=== PATIENT | male | born 1985 | race Caucasian/White ===

== ENCOUNTER 2017-03-04 09:03 | Emergency (ER) | payer BC ==
[2017-03-04 09:14] VITALS: BP 144/85
--- NOTE | 2017-03-04 09:47 | UC ---
Respiratory Complaint HPI - HPI Summary HPI Summary: 31 year old with cough ."Just a constant cough that I've had for about a week that won't go away and causing a big headache." Sinus pressure as well . Initial subjective fever and night sweats for three days. Headache aggravated by coughing and mostly nonproductive cough for one week. Patient works construction. Was feeling better and now worsening and with cough and fatigue. PCP Romero. [ End ] - History of Current Complaint Chief Complaint: UCRespiratory Stated Complaint: COUGH Time Seen by Provider: 03/04/17 09:41 Hx Obtained From: Patient Onset/Duration: Gradual Onset Timing: Constant Severity Initially: Mild Severity Currently: Moderate Character: Cough: Nonproductive Aggravating Factors: Nothing Alleviating Factors: Nothing Associated Signs And Symptoms: Positive: URI, Nasal Congestion - Allergies/Home Medications Allergies/Adverse Reactions: Allergies Allergy/AdvReac Type Severity Reaction Status Date / Time No Known Allergies Allergy Verified 03/04/17 09:09 Home Medications: Home Medications Syflrevnzqqtv-Hsrmecwtic-Qbuzb [VICKS DAYQUIL/NYQUIL COLD (Liquid)] 30 ml PO Q6H PRN 03/04/17 [History Confirmed 03/04/17] Sertraline* [Zoloft*] 50 mg PO DAILY 03/04/17 [History Confirmed 03/04/17] PMH/Surg Hx/FS Hx/Imm Hx Previously Healthy: Yes Psychological History: Anxiety - Surgical History Surgical History: None - Family History Known Family History: Positive: None - Social History Occupation: Employed Full-time Lives: With Family Alcohol Use: Occasionally Substance Use Type: None Smoking Status (MU): Never Smoked Tobacco - Immunization History Most Recent Influenza Vaccination: Not the 2016/2017 Season Most Recent Tetanus Shot: possibly within 5 yrs. Review of Systems Constitutional: Fatigue ENT: Sore Throat, Ear Ache, Nasal Discharge, Sinus Congestion, Sinus Pain/ Tenderness Respiratory: Cough All Other Systems Reviewed And Are Negative: Yes Physical Exam Triage Information Reviewed: Yes Appearance: Well-Appearing, No Pain Distress, Well-Nourished Vital Signs: Initial Vital Signs Temp 100.2 F 03/04/17 09:07 Pulse 86 03/04/17 09:07 Resp 16 03/04/17 09:07 BP 144/85 03/04/17 09:07 Pulse Ox 98 12/21/17 09:07 Vital Signs Reviewed: Yes Eye Exam: Normal ENT Exam: Normal ENT: Positive: TM dull - b/l Dental Exam: Normal Neck exam: Normal Neck: Positive: 1 Respiratory Exam: Normal Respiratory: Positive: Chest non-tender, No respiratory distress, No accessory muscle use, Decreased breath sounds - LLL, Rhonchi - LLL Cardiovascular Exam: Normal Musculoskeletal Exam: Normal Neurological Exam: Normal Psychological Exam: Normal Skin Exam: Normal UC Diagnostic Evaluation - Laboratory O2 Sat by Pulse Oximetry: 98 Respiratory Course/Dx - Differential Dx/Diagnosis Differential Diagnosis/HQI/PQRI: Lower Resp Infection, Sinusitis Provider Diagnoses: bronchitis Discharge - Discharge Plan Condition: Good Disposition: HOME Prescriptions: Azithromyxin RODNEY (NF) [Z-Rodney (Zithromax) 250 mg tabs #6] 2 tab PO .TODAY, THEN 1 DAILY #6 tab Benzonatate [Benzonatate 200 MG] 200 mg PO TID #30 cap Patient Education Materials: Acute Bronchitis (ED) Referrals: Zac Romero DO [Primary Care Provider] - 4 Days
== END 2017-03-04 10:00 | disposition home or self-care (01) ==
LOC: UCCORT 09:03
DX: J40 Bronchitis, not specified as acute or chronic (principal)
CPT/HCPCS: 99202; G0463

== ENCOUNTER 2019-06-29 09:54 | Emergency (ER) | payer OTHER ==
--- NOTE | 2019-06-29 11:02 | UC ---
[facility] HPI HPI Summary: 33 yo with 2 days of dry cough and mild shortness of breath, felt to be related to working in a [employer] environment. He has no wheeze. Reports very mild headache , no medications taken for relief of pain. Tends to get aches and pains due to work, no worse than usual. Normal appetite without gi symptoms. He is here primarily for COVID testing due to concern about his children. [facility] PMH Previously Healthy: Yes Cardiovascular History: Reports: Hx Hypertension Infectious Disease History: No - Family History Known Family History: Positive: None - states parents living and healthy. - Social History Occupation: Employed Full-time - self employed contractor Lives: With Family Alcohol Use: Occasionally Substance Use Type: Reports: None Smoking Status (MU): Never Smoked Tobacco [facility] ROS All Other Systems Reviewed And Are Negative: Yes Constitutional: Negative Eyes: Negative ENT: Negative Cardiovascular: Negative Positive: Shortness Of Breath, Cough Gastrointestinal: Negative Genitourinary: Negative Positive: Myalgia - diffuse and mild Skin: Negative Neurological/Mental Status: Negative Positive: Headache Psychological: Normal [facility] PE Telehealth Physical Exam: Telehealth visit by patient consent, and determined to be a suitable candidate. His preference is to not enter the facility. Physical appearance is normal; speaks easily without distress, with very occasional cough. Appearance: Positive: Well-Appearing, No Pain Distress [facility] Course/Dx Assessment/Plan: COVID testing today followed by self isolation at home until result is available. Suggested trial of antihistamine for relief of symptoms. Provider Diagnoses: Cough in adult [facility] Disposition Provider Recommendation for Treatment: Urgent Care Telehealth Visit: Patient Consented Verbally to Telehealth Visit Telehealth Patient Statement: The patient should understand that they are communicating with their provider via a secure communication platform and that all the same privacy and confidentiality rules apply. They will also be responsible for copayments or coinsurances that apply to any Telehealth visit. Patient Identifiers: 2 Patient Identifiers Verified for Telehealth Visit - name and date of Telehealth Visit Start Time: 10:50 Telehealth Visit End Time: 11:00 Telehealth Provider Attestation: The above services were appropriate to provide in a Telehealth setting. - Attestation Statements Document Initiated by Scribe: No
== END 2019-06-29 11:24 | disposition home or self-care (01) ==
LOC: UCCORT 09:54
DX: R05 Cough (principal); R06.02 Shortness of breath; R51 Headache; Z20.828 Contact with and (suspected) exposure to other viral communicable diseases; I10 Essential (primary) hypertension; Z79.899 Other long term (current) drug therapy
CPT/HCPCS: 87635; 99211; G0463; Q3014